=== PATIENT | female | born 1950 | race American Indian/Alaskan Native ===

== ENCOUNTER 2017-04-24 09:12 | Outpatient (CLI) | payer MEDICARE ==
--- NOTE | 2017-04-25 12:45 | Mammography Report ---
BILATERAL DIGITAL SCREENING MAMMOGRAM with CAD: 04/24/17 09:12:00 CLINICAL: Routine screening. COMPARISON:04/21/16 FINDINGS: The breasts are heterogeneously dense, which may obscure small masses. No mass, architectural distortion or suspicious calcifications. IMPRESSION: No mammographic evidence of malignancy. BI-RADS CATEGORY: 1 - - Negative RECOMMENDATION: Routine mammographic screening in one year. COMMENT: Patient follow-up letters are generated by our [employer] application.
== END 2017-04-24 09:13 | disposition home or self-care (01) ==
LOC: SPVWC 09:12
DX: Z12.31 Encounter for screening mammogram for malignant neoplasm of breast (principal)
CPT/HCPCS: 77067; G0202

== ENCOUNTER 2017-08-02 11:30 | Outpatient (CLI) | payer MEDICARE ==
--- NOTE | 2017-08-03 08:16 | Mammography Report ---
BONE DEXA:08/02/17 11:30:00 CLINICAL: Postmenopausal. No comparison. TECHNIQUE: Two site bone DEXA performed on an Hologic scanner. FINDINGS: The average BMD of the lumbar spine L1-L4 is 0.893g/cm squared with a T-score of -2.3 and a Z-score of -0.1. The average BMD of the left hip is 0.771g/cm squared with a T-score of -1.7 and a Z-score of -0.6. IMPRESSION: WHO classification: Osteopenia with increased fracture risk based on spine and left hip measurements. RECOMMENDATION: Clinical correlation and routine screening. DEFINITIONS: BMD = Bone Mineral Density T-score = BMD related to mean peak bone mass of young adult (mean expressed in Standard Deviation) Z-score = Age matched BMD expressed in SD World Health Organization (WHO) Diagnostic Criteria Normal T-score > -1 SD Osteopenia T-score between -1 and -2.4 SD Osteoporosis T-score -2.5 SD or below NOTE: BMD is not the only risk factor for fracture. One should also consider factors such as the patient's age, risk of falling, previous osteoporotic fracture, family history of osteoporotic fractures, current smoker, and low body weight. Z-scores are not calculated if >80 years of age.
== END 2017-08-02 11:31 | disposition home or self-care (01) ==
LOC: SPVWC 11:30
PROVIDERS: ATTEND Internal Medicine
DX: M85.88 Other specified disorders of bone density and structure, other site (principal); Z78.0 Asymptomatic menopausal state
CPT/HCPCS: 77080

== ENCOUNTER 2018-09-14 11:40 | Outpatient (CLI) | payer MEDICARE ==
--- NOTE | 2018-09-14 13:26 | XRay Report ---
XRAY RIGHT HIP TWO VIEWS: 09/14/18 11:40:00 CLINICAL: Right hip pain. FINDINGS: No fracture or dislocation.Mild osteopenia and mild osteoarthritis of the hip. Similar changes in the left hip. The pelvic bones are intact. Normal soft tissues. IMPRESSION: Mild arthritis.
== END 2018-09-14 11:41 | disposition home or self-care (01) ==
LOC: SPVIMAG 11:40
PROVIDERS: ATTEND Physician Assistant Medical
DX: M16.11 Unilateral primary osteoarthritis, right hip (principal)

== ENCOUNTER 2019-08-16 09:39 | Outpatient (CLI) | payer MEDICARE ==
--- NOTE | 2019-08-16 11:55 | Mammography Report ---
BILATERAL DIGITAL SCREENING MAMMOGRAM WITH CAD INDICATION: Routine screening mammography. TECHNIQUE: Digital bilateral 2D mammography was obtained in the craniocaudal and mediolateral obliq ue projections. This examination was interpreted with the benefit of Computer-Aided Detection analysi s. COMPARISON: 08/03/2018, 04/24/2017. FINDINGS: Breast Density: There are scattered areas of fibroglandular density. No suspicious mass, microcalcifications, or architectural distortion. IMPRESSION: No evidence of breast malignancy. Recommend routine screening mammogram in one year. BI-RADS Category 1: Negative. No mammographic evidence of malignancy. Recommend routine screening m ammography in one year. A "normal" or negative report should not discourage follow up or biopsy of a clinically significant f inding. A written summary of these findings will be mailed to the patient. The patient will be entered into a mammography reporting system which will generate a reminder letter for the patient's next appointmen t at the appropriate interval. The [employer] recommends yearly mammograms starting at age 40 and continuing as l neva as a woman is in good health. Breast MRI is recommended for women with an approximate 20-25% or greater lifetime risk of breast cancer, including women with a strong family history of breast or ova mayco cancer or who have been treated for Hodgkin's disease. Signer Name: Diaz Robertson MD Signed: 08/16/2019 11:50 AM Workstation Name: [id number]
== END 2019-08-16 09:40 | disposition home or self-care (01) ==
LOC: SPVWC 09:39
PROVIDERS: ATTEND Family Medicine
DX: Z12.31 Encounter for screening mammogram for malignant neoplasm of breast (principal)
CPT/HCPCS: 77067

== ENCOUNTER 2020-08-17 08:49 | Outpatient (CLI) | payer MEDICARE ==
--- NOTE | 2020-08-17 10:17 | Mammography Report ---
DIGITAL SCREENING MAMMOGRAM WITH CAD, 08/17/2020 CLINICAL INFORMATION / INDICATION: Routine screening mammography. TECHNIQUE: Digital bilateral 2D mammography was obtained in the craniocaudal and mediolateral obliqu e projections. This examination was interpreted with the benefit of Computer-Aided Detection analysis . COMPARISON: 08/03/2018, 08/16/2019 FINDINGS: Breast Density: There are scattered areas of fibroglandular density. No dominant mass, suspicious calcifications, or architectural distortion in either breast. No interval change. IMPRESSION: No mammographic evidence of malignancy. Follow up recommendation: Routine yearly BI-RADS Category 1: Negative. A "normal" or negative report should not discourage follow up or biopsy of a clinically significant f inding. A written summary of these findings will be mailed to the patient. The patient will be entered into a mammography reporting system which will generate a reminder letter for the patient's next appointmen t at the appropriate interval. The [employer] recommends yearly mammograms starting at age 40 and continuing as l neva as a woman is in good health. Breast MRI is recommended for women with an approximate 20-25% or greater lifetime risk of breast cancer, including women with a strong family history of breast or ova mayco cancer or who have been treated for Hodgkin's disease. Signer Name: Tosin Grijalva MD Signed: 08/17/2020 10:13 AM Workstation Name: [email or web address]
== END 2020-08-17 08:50 | disposition home or self-care (01) ==
LOC: SPVWC 08:49
PROVIDERS: ATTEND Family Medicine
DX: Z12.31 Encounter for screening mammogram for malignant neoplasm of breast (principal)
CPT/HCPCS: 77067

== ENCOUNTER 2021-08-19 09:31 | Outpatient (CLI) | payer MEDICARE ==
--- NOTE | 2021-08-19 10:53 | Mammography Report ---
DEXA BONE DENSITY SCAN INDICATION / CLINICAL INFORMATION: M81.0 SENILE OSTEOPOROSIS. 70 years Female COMPARISON: 08/02/17 LUMBAR SPINE, L1-L4: - Bone mineral density (BMD) = 0.887 g/cm2. - T-score = -2.4 - Change (%) since most recent prior (if available): -0.7% RIGHT HIP, NECK : Not evaluated. LEFT HIP, NECK : - Bone mineral density (BMD) = 0.573 g/cm2. - T-score = -2.7 - Change (%) since most recent prior (if available): -12.4% IMPRESSION: 1. WHO Classification: Osteoporosis. Fracture Risk: High. Note: 10-Year Fracture Risk (FRAX) not reported. This DEXA unit lacks FRAX functionality. BMD Reporting Guidelines (ISCD, 2015) BMD Reporting in Postmenopausal Women and in Men Age 50 and Older - T-scores are preferred. - The WHO densitometric classification is applicable. BMD Reporting in Females Prior to Menopause and in Males Younger Than Age 50 - Z-scores, not T-scores, are preferred. This is particularly important in children. - A Z-score of -2.0 or lower is defined as below the expected range for age, and a Z-score above -2.0 is within the expected range for age. - Osteoporosis cannot be diagnosed in men under age 50 on the basis of BMD alone. - The WHO diagnostic criteria may be applied to women in the menopausal transition. http://www.iscd.org/official-positions/6891-jnts-tgkzlomw-positions-adult/ Signer Name: Nisreen Vega MD Signed: 08/19/2021 10:48 AM Workstation Name: [email or web address]
--- NOTE | 2021-08-19 15:54 | Mammography Report ---
DIGITAL SCREENING MAMMOGRAM WITH CAD, 08/19/2021 CLINICAL INFORMATION / INDICATION: Routine screening mammography. SCREENING MAMMO Z12.31 TECHNIQUE: Digital bilateral 2D mammography was obtained in the craniocaudal and mediolateral obliqu e projections. This examination was interpreted with the benefit of Computer-Aided Detection analysis . COMPARISON: 01/24/2014 through 08/17/2020. FINDINGS: Breast Density: The breasts are heterogeneously dense, which may obscure small masses. No dominant mass, suspicious calcifications, or architectural distortion in either breast. IMPRESSION: No mammographic evidence of malignancy. Follow up recommendation: Routine yearly BI-RADS Category 1: NEGATIVE A "normal" or negative report should not discourage follow up or biopsy of a clinically significant f inding. A written summary of these findings will be mailed to the patient. The patient will be entered into a mammography reporting system which will generate a reminder letter for the patient's next appointmen t at the appropriate interval. The [employer] recommends yearly mammograms starting at age 40 and continuing as l neav as a woman is in good health. Breast MRI is recommended for women with an approximate 20-25% or greater lifetime risk of breast cancer, including women with a strong family history of breast or ova mayco cancer or who have been treated for Hodgkin's disease. Signer Name: Jhonny Green MD Signed: 08/19/2021 3:49 PM Workstation Name: [email or web address]
== END 2021-08-19 09:32 | disposition home or self-care (01) ==
LOC: SPVWC 09:31
PROVIDERS: ATTEND Family Medicine
DX: Z12.31 Encounter for screening mammogram for malignant neoplasm of breast (principal); M81.0 Age-related osteoporosis without current pathological fracture
CPT/HCPCS: 77067; 77080